=== PATIENT | male | born 1960 ===

== ENCOUNTER 2016-10-22 11:38 | Emergency (ER) | payer SELFPAY ==
[2016-10-22] MEDS ORDERED: ASPIRIN 81 MG CHEW TAB ONE (12:05)
[2016-10-22] MEDS ORDERED: LABETALOL 100 MG/20 ML VIAL ONE (12:05)
== END 2016-10-22 15:42 | disposition home or self-care (01) ==
LOC: ER 11:38
DX: R07.2 Precordial pain (principal); R07.89 Other chest pain; I10 Essential (primary) hypertension; Z79.899 Other long term (current) drug therapy; F17.210 Nicotine dependence, cigarettes, uncomplicated
CPT/HCPCS: 36415; 71010; 80053; 82550; 83735; 84484; 85025; 85610; 85730; 93005; 96374